=== PATIENT | female | born 1985 | race Caucasian/White ===

== ENCOUNTER → 2017-01-19 | Outpatient (REF) | payer SELFPAY | LOC: M LAB REF 12:03 | PROVIDERS: ATTEND Family Medicine Addiction Medicine | DX: F11.21 Opioid dependence, in remission (principal) ==

== ENCOUNTER → 2017-02-28 | Outpatient (REF) | payer MEDICAID | LOC: M LAB REF 17:14 | PROVIDERS: ATTEND Family Medicine Addiction Medicine | DX: F11.21 Opioid dependence, in remission (principal) ==

== ENCOUNTER → 2017-04-04 | Outpatient (REF) | payer OTHER ==
[~2017-04-04] MED LIST: BUTR10DI2 SL; XANA2TAB2 PO
== END ==
LOC: M LAB REF 16:30
PROVIDERS: ATTEND Family Medicine Addiction Medicine
DX: F11.21 Opioid dependence, in remission (principal)

== ENCOUNTER 2017-04-06 19:37 | Emergency (ER) | payer OTHER ==
[~2017-04-06] VITALS: Ht 152.4 cm; Wt 47.2 kg
[2017-04-06] MEDS ORDERED: BUTR10DI2 SL (19:57)
[2017-04-06] MEDS ORDERED: XANA2TAB2 PO (19:57)
--- NOTE | 2017-04-06 22:23 | ED PDOC ---
Post-Departure Follow-Up Patient states she believes she may be and possibly having a miscarriage. She states her LMP was 02/10/17 and she does not use any control. She has a history of multiple pregnancies ending in miscarriage and has had 1 ruptured ectopic. She states she started bleeding today. She denies any abdominal pain or cramping. The remainder of her H&P and ROS are as noted on her T-sheet. Initially, a urine hCG was completed, which was negative. When discussing with the patient, she stats that, with her ectopic, she had multiple negative urine hCG then a serum test was positive. The US then revealed a ruptured ectopic . Given her past history, a serum qualitative hGC was then ordered to confirm that she is not . JUANA MARTÍNEZ. [facility] Apr 06, 2017 22:23
[2017-04-06 23:22] LABS: CONTROL LINE HCG INT CTR LINE PRESENT
[2017-04-06 23:25] VITALS: BP 97/65
--- NOTE | 2017-04-06 23:28 | ED PDOC ---
Post-Departure Follow-Up Discussed negative serum hCG with the patient. Advised that this is her menses. Instructed to obtain her OB records so the providers at [facility] can see her history. Instructed on worrisome signs to return to the ED for. Questions answered. Patient states understanding to the instructions. JUANA MARTÍNEZ. [facility] Apr 06, 2017 23:28
== END 2017-04-06 23:31 | disposition home or self-care (01) ==
LOC: M ED 22:35
DX: N93.9 Abnormal uterine and vaginal bleeding, unspecified (principal); Z79.899 Other long term (current) drug therapy; Z88.0 Allergy status to penicillin; Z88.8 Allergy status to other drugs, medicaments and biological substances; F17.210 Nicotine dependence, cigarettes, uncomplicated

== ENCOUNTER → 2017-04-19 | Outpatient (REF) | payer OTHER ==
[2017-04-27 14:17] LABS: BENZODIAZEPINES, URINE SCREEN See Final Results ng/mL (Cutoff=200); METHADONE, URINE SCREEN Negative ng/mL (Cutoff=300)
== END ==
LOC: M LAB REF 16:35
PROVIDERS: ATTEND Family Medicine Addiction Medicine
DX: F11.21 Opioid dependence, in remission (principal); F41.8 Other specified anxiety disorders

== ENCOUNTER → 2017-05-03 | Outpatient (REF) | payer MEDICAID, OTHER ==
[~2017-05-03] MED LIST changes: +ATRO1OPD OD; +ATRO1OPD PO; +BUPR8SUB SL; +BUTR10DI SL; -BUTR10DI2 SL; +[UNRECOGNIZED DRUG - OTHER] OD
[2017-05-08 08:09] LABS: BENZODIAZEPINES, URINE SCREEN See Final Results ng/mL (Cutoff=200); METHADONE, URINE SCREEN Negative ng/mL (Cutoff=300)
== END ==
LOC: M LAB REF 16:34
PROVIDERS: ATTEND Family Medicine Addiction Medicine
DX: F11.21 Opioid dependence, in remission (principal)

== ENCOUNTER → 2017-05-25 | Outpatient (REF) | payer OTHER ==
[2017-06-01 00:06] LABS: BENZODIAZEPINES, URINE SCREEN See Final Results ng/mL (Cutoff=200); METHADONE, URINE SCREEN Negative ng/mL (Cutoff=300)
== END ==
LOC: M LAB REF 16:24
PROVIDERS: ATTEND Family Medicine Addiction Medicine
DX: F11.21 Opioid dependence, in remission (principal)

== ENCOUNTER 2017-06-05 12:06 | Day surgery (SDC) | payer OTHER ==
[~2017-06-05] VITALS: Ht 157.5 cm; Wt 49.9 kg
[~2017-06-05 12:06] MED LIST changes: +ACETAMINOPHEN 325 MG TAB PO PRN; -BUPR8SUB SL; +BUPRENORPHINE/NALOXONE 8-2MG SUBLINGUAL TABLET(SUBOXONE) SL SCH; +LIDOCAINE 2% W/EPIN INJ 20ML **PRES FREE As Ordered ONE; +LIDOCAINE 4% INJ 5 ML AMP OU ONE; +MAXITROL OPHTH OINT 3.5 GM As Ordered ONE; +MAXITROL OPHTH SUSP 5 ML As Ordered ONE; +POVIDONE-IODINE 5% OPHTH PREP SOL 30ML As Ordered ONE; +PROPARACAINE 0.5% OPHTH SOL 15ML OD PRN
[2017-06-05 12:43] LABS: CONTROL LINE UCG INT CTR LINE PRESENT
[2017-06-05] MEDS ORDERED: EMLA CREAM 5GM (LIDOCAINE/PRILOCAINE) As Ordered ONE (12:51)
[2017-06-05] MEDS ORDERED: LIDOCAINE 2% INJ 100 MG/5 ML SDV (FOR ANES.) As Ordered ONE (13:50)
[2017-06-05] MEDS ORDERED: PROPOFOL 200 MG/20 ML VIAL As Ordered ONE (13:50)
[2017-06-05] MEDS ORDERED: MIDAZOLAM INJ 2 MG/2 ML VIAL (J2250) As Ordered ONE (13:50)
[2017-06-05] MEDS ORDERED: fentaNYL 100 MCG/2 ML INJECTION (J3010) As Ordered ONE ×2 (13:51→16:27)
[2017-06-05] MEDS ORDERED: ONDANSETRON 4MG/2ML VIAL (J2405) As Ordered ONE (15:18)
[2017-06-05] MEDS: fentaNYL 100 MCG/2 ML INJECTION (J3010) IV PRN ×8 (16:29→17:22)
[2017-06-05] MEDS ORDERED: LR 1,000 ML IV SCH (16:45)
[2017-06-05] MEDS ORDERED: ONDANSETRON 4MG/2ML VIAL (J2405) IV PRN (16:45)
[2017-06-05] MEDS ORDERED: PERCOCET 5MG/325MG TAB PO PRN ×2 (16:45→20:45)
[2017-06-05] MEDS ORDERED: METOCLOPRAMIDE INJ 10MG/2ML VIAL (J2765) IV PRN (16:45)
[2017-06-05] MEDS ORDERED: TRIMETHOBENZAMIDE 300 MG CAP PO PRN (19:00)
[2017-06-05 19:30] VITALS: BP 101/60
[2017-06-05] MEDS ORDERED: ACETAMINOPHEN 500 MG TAB PO PRN (19:45)
[2017-06-05 20:30] VITALS: BP 107/65
[2017-06-05 20:31] LABS: MEAN CORPUSCULAR HEMOGLOBIN 29.8 pg (27.0-33.0); MEAN CORPUSCULAR HGB CONC 33.6 g/dl (32.0-36.5); MEAN CORPUSCULAR VOLUME 88.6 fl (80.0-96.0); WHITE BLOOD COUNT 5.4 K/mm3 (4.0-10.0)
[2017-06-05 20:47] LABS: ANION GAP 6 MEQ/L (8-16); BLOOD UREA NITROGEN 11 MG/DL (7-18); CALCIUM LEVEL 8.1 MG/DL (8.5-10.1); CARBON DIOXIDE LEVEL 26 MEQ/L (21-32); CHLORIDE LEVEL 108 MEQ/L (98-107); CREATININE FOR GFR 1.08 MG/DL (0.55-1.02); GLOMERULAR FILTRATION RATE > 60.0 (>60); GLUCOSE, FASTING 127 MG/DL (70-105); POTASSIUM SERUM 4.1 MEQ/L (3.5-5.1); SODIUM LEVEL 140 MEQ/L (136-145)
[2017-06-05] MEDS ORDERED: PREGABALIN 75 MG CAP(LYRICA) PO SCH (21:00)
[2017-06-05] MEDS ORDERED: ALPRAZolam 0.5 MG TAB PO SCH (21:00)
[2017-06-05] MEDS ORDERED: GABAPENTIN 300 MG CAP PO SCH ×2 (21:00)
[2017-06-05 21:12] LABS: FERRITIN 8 NG/ML (8-252); PERCENT SATURATION 16.5 % (13.2-45.0); TOTAL IRON BINDING CAPACITY 267 UG/DL (250-450)
[2017-06-05 21:21] LABS: VITAMIN B12 LEVEL 331 PG/ML (247-911)
[2017-06-05 21:22] LABS: FOLATE 6.7 NG/ML (>5.4)
[2017-06-05 21:30] VITALS: BP 104/64
[2017-06-05] MEDS ORDERED: MORPHINE 4 MG/ML 1ML SYRINGE IV PRN (21:45)
[2017-06-05] MEDS ORDERED: zolPIDEM TARTRATE 5 MG TAB PO ONE (21:45)
[2017-06-05 22:30] VITALS: BP 113/60
[2017-06-05] MEDS ORDERED: PERCOCET 5MG/325MG TAB PO ONE (22:45)
--- NOTE | 2017-06-05 23:20 | CR ---
DATE OF CONSULTATION: 06/05/2017 TIME PATIENT WAS SEEN: 2030 hours CONSULTING PHYSICIAN: Dr. Nelson, Ophthalmology. SIGN LANGUAGE TRANSLATOR: Dr. Rosenbaum, Hospitalist. REASON FOR CONSULT: Medical management. CHIEF COMPLAINT: Right eye pain. HISTORY OF THE PRESENT ILLNESS: A 31-year-old female with a past medical history of blind in the right eye, post-traumatic stress disorder (PTSD), anxiety, bipolar disorder, manic depression, hepatitis C, presented for enucleation of the right eye with Dr. Nelson. At the time of interview, the patient was agitated and anxious and does not want to answer further questions, would only allow for limited examination. Therefore, much of the medical history and information were obtained from nurses and the patient's chart. ALLERGIES: The patient is allergic to AMOXICILLIN and NALOXONE, which the patient stated makes her have trouble breathing and closes her airway. HOME MEDICATIONS: Including: - Xanax 2 mg one tablet by mouth three times a day - Butrans 8 mcg sublingual three times a day - atropine sulfate eye droplet 1% in the right eye twice a day PAST MEDICAL HISTORY: Blind in the right eye. PTSD. Anxiety. Bipolar disorder. Manic depression. Hepatitis C. PAST SURGICAL HISTORY: section times two. Left tubal ligation due to tubal . Cyst removal from ovary. SOCIAL HISTORY: The patient lives with her fiance and her son, smokes 3-5 cigarettes a day. Unclear if the patient is drinking; however, the patient stated that she has not been using narcotics since 2013, currently taking Suboxone. FAMILY HISTORY: The patient's paternal grandmother had breast cancer and paternal grandmother also had colorectal cancer. REVIEW OF SYSTEMS: Could not be fully obtained due to patient was not cooperative. PHYSICAL EXAMINATION: VITAL SIGNS: Temperature 98.6, pulse 71, respirations 18, blood pressure 101/60, oxygen was saturating at 99% on room air. GENERAL: The patient is a thin, young female who just had surgery for the right eye, laying flat in the bed. HEENT: The patient had an eye patch on for the right eye. Mucous membranes were moist. NECK: Supple. CARDIOVASCULAR: Regular rate and rhythm. S1, S2. No murmurs, rubs or gallops. LUNGS: Clear to auscultation bilaterally. No wheezing, rales, or rhonchi. ABDOMEN: Positive bowel sounds, soft, nontender, nondistended. EXTREMITIES: No edema, clubbing or cyanosis. The rest of the physical examination was not performed due to patient refused. LABORATORY DATA: WBC 5.4, hemoglobin 11.5, hematocrit 34.1 with platelet count of 104, MCV of 88.6. Sodium 140, potassium 4.1, chloride 108, bicarbonate 26, anion gap was 6, BUN 11 , creatinine 1.08, GFR greater than 60, fasting glucose 127, calcium 8.1, iron 44, TIBC 267, transferring saturation 16.5, ferritin was only 8, vitamin B12 was 331 , folate 6.7. Urine test was negative. ASSESSMENT AND PLAN: A 31-year-old female with a past medical history of blind in the right eye, post-traumatic stress disorder (PTSD), anxiety, bipolar disorder, manic depression, hepatitis C, history of drug abuse, currently on Suboxone, being consulted for medical management and pain management. Patient initially was given Tylenol, which she refused. Later on, Lyrica was refused as well. We also prescribed her Percocet one tablet by mouth every 6 hours, which she stated was not enough. Therefore, it was increased to Percocet two tablets by mouth every 4 hours. In addition, morphine 4 mg every 4 hours was given and also started her on gabapentin 100 mg by mouth three times a day. At this point, the patient's pain management was also consulted. The patient's Xanax was started as well. She was also given Ambien 5 mg for her to sleep. Otherwise, the patient was found to be anemic in the complete blood count (CBC); therefore, an iron panel was done and found she has iron deficiency anemia. Therefore, ferrous gluconate has been started. Once the patient goes home, she may need outpatient workup for reason she has iron deficiency anemia. Otherwise, pain management has been consulted, likely will see her in the morning. Otherwise, the patient has been discussed with attending doctor, Dr. Rosenbaum. My preceptor for this patient encounter was Dr. Rosenbaum. The preceptor was physically present in the building during the encounter and was fully available. As needed, all aspects of the patient interview, examination, medical decision making process, and medical care plan development were reviewed and approved by the preceptor. The preceptor is aware and concurs with the plan as stated in the body of this note and will attest to such by his/her co-signature. Attending Note: Patient discussed in detail with resident. I have independently evaluated patient and agree with plan as outlined above I have had subsequent discussions with our pharmacy. We will profile her home med of Saboxone and make adjustments this evening regarding pain meds. We will hold off on neurology and she may resume her home medications. Will recommend that the day team tomorrow reach out to pain management since I believe she may have difficulty controlling her pain with her known history of narcotic tolerance.] TAYE
[2017-06-06] MEDS ORDERED: BUPR8SUB SL (02:07)
[2017-06-06] MEDS: PERCOCET 5MG/325MG TAB PO PRN ×2 (02:49→07:08)
[2017-06-06 04:00] VITALS: BP 132/57
[2017-06-06 08:00] VITALS: BP 90/52
[2017-06-06] MEDS ORDERED: FERROUS GLUCONATE 324 MG TAB PO SCH (09:00)
[2017-06-06] MEDS ORDERED: BUPRENORPHINE/NALOXONE 8-2MG SUBLINGUAL TABLET(SUBOXONE) SL SCH (09:00)
[2017-06-06] MEDS ORDERED: ALPRAZolam 0.5 MG TAB PO PRN (09:15)
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
== END 2017-06-06 11:20 | disposition left against medical advice (07) ==
LOC: M SDC 12:06 → M PED 18:21 → M SDC 06-06 11:20
PROVIDERS: ATTEND Ophthalmology
DX: H54.41 Blindness, right eye, normal vision left eye (principal); F43.10 Post-traumatic stress disorder, unspecified; F41.9 Anxiety disorder, unspecified; F31.9 Bipolar disorder, unspecified; B19.20 Unspecified viral hepatitis C without hepatic coma; R29.898 Other symptoms and signs involving the musculoskeletal system; Z88.1 Allergy status to other antibiotic agents; Z88.5 Allergy status to narcotic agent; Z79.899 Other long term (current) drug therapy; Z98.51 Tubal ligation status; Z72.0 Tobacco use

== ENCOUNTER → 2017-06-12 | Outpatient (REF) | payer OTHER ==
[~2017-06-12] MED LIST changes: -ACETAMINOPHEN 325 MG TAB PO PRN; +BUPR8SUB SL; -BUPRENORPHINE/NALOXONE 8-2MG SUBLINGUAL TABLET(SUBOXONE) SL SCH; -LIDOCAINE 2% W/EPIN INJ 20ML **PRES FREE As Ordered ONE; -LIDOCAINE 4% INJ 5 ML AMP OU ONE; -MAXITROL OPHTH OINT 3.5 GM As Ordered ONE; -MAXITROL OPHTH SUSP 5 ML As Ordered ONE; -POVIDONE-IODINE 5% OPHTH PREP SOL 30ML As Ordered ONE; -PROPARACAINE 0.5% OPHTH SOL 15ML OD PRN
[2017-06-19 08:09] LABS: BENZODIAZEPINES, URINE SCREEN See Final Results ng/mL (Cutoff=200); METHADONE, URINE SCREEN Negative ng/mL (Cutoff=300); OXYCODONE URINE Negative (Cutoff=100); pH, URINE 5.8 (4.5-8.9)
== END ==
LOC: M LAB REF 13:44
PROVIDERS: ATTEND Family Medicine Addiction Medicine
DX: F11.21 Opioid dependence, in remission (principal)

== ENCOUNTER → 2017-07-05 | Outpatient (REF) | payer OTHER ==
[2017-07-12 00:06] LABS: BENZODIAZEPINES, URINE SCREEN See Final Results ng/mL (Cutoff=200); METHADONE, URINE SCREEN Negative ng/mL (Cutoff=300)
== END ==
LOC: M LAB REF 12:10
PROVIDERS: ATTEND Family Medicine Addiction Medicine
DX: F11.21 Opioid dependence, in remission (principal)

== ENCOUNTER → 2017-07-21 | Outpatient (REF) | payer OTHER ==
[2017-08-01 09:42] LABS: SUMMARY SEE SEPARATE REPORT
== END ==
LOC: M LAB REF 16:45
PROVIDERS: ATTEND Family Medicine Addiction Medicine
DX: F11.21 Opioid dependence, in remission (principal)

== ENCOUNTER → 2017-12-04 | Outpatient (REF) | payer OTHER, MEDICAID ==
[2017-12-04 13:37] LABS: CONTROL LINE UCG INT CTR LINE PRESENT; URINE PREG TEST NEGATIVE (NEGATIVE)
== END ==
LOC: M LAB REF 13:06
DX: Z31.49 Encounter for other procreative investigation and testing (principal)

== ENCOUNTER → 2018-01-10 | Outpatient (CLI) | payer MEDICAID | LOC: M OUTALCOH 08:29 | DX: Z03.89 Encounter for observation for other suspected diseases and conditions ruled out (principal) ==

== ENCOUNTER 2018-04-06 14:28 | Emergency (ER) | payer OTHER, MEDICAID ==
[2018-04-06 15:24] LABS: AMORPHOUS SEDIMENT RFX SMALL (NEGATIVE); CONTROL LINE UCG INT CTR LINE PRESENT; KETONE, URINE AUTO RFX NEGATIVE (NEGATIVE); LEUKOCYTE ESTERASE UR AUTO RFX NEGATIVE (NEGATIVE); MUCUS, URINE RFX SMALL (NEGATIVE); NITRITE, URINE AUTO RFX NEGATIVE (NEGATIVE); RBC, URINE AUTO RFX 27 /HPF (0-3); SPECIFIC GRAVITY UR AUTO RFX 1.014 (1.002-1.035); SQUAM EPITHELIAL CELL UR AURFX 10 /HPF (0-6); URINE PREG TEST NEGATIVE (NEGATIVE); WBC, URINE AUTO RFX 1 /HPF (0-3)
[2018-04-06 15:51] LABS: HEMATOCRIT 39.7 % (36.0-47.0); HEMOGLOBIN 12.7 g/dl (12.0-15.5); MEAN CORPUSCULAR HEMOGLOBIN 28.3 pg (27.0-33.0); MEAN CORPUSCULAR VOLUME 88.6 fl (80.0-96.0); PLATELET COUNT, AUTOMATED 169 10^3/uL (150-450); RED BLOOD COUNT 4.48 10^6/uL (4.00-5.40); RED CELL DISTRIBUTION WIDTH 13.8 % (11.5-14.5); WHITE BLOOD COUNT 5.5 10^3/uL (4.0-10.0)
[2018-04-06 16:09] LABS: CONTROL LINE HCG INT CTR LINE PRESENT; HCG, SERUM QUALITATIVE NEGATIVE (NEGATIVE)
== END 2018-04-06 16:29 | disposition home or self-care (01) ==
LOC: M ED 14:28
DX: N93.8 Other specified abnormal uterine and vaginal bleeding (principal); Z87.59 Personal history of other complications of pregnancy, childbirth and the puerperium; Z79.899 Other long term (current) drug therapy; Z88.0 Allergy status to penicillin; Z88.8 Allergy status to other drugs, medicaments and biological substances
CPT/HCPCS: 84703

== ENCOUNTER 2018-09-01 18:09 | Emergency (ER) | payer OTHER ==
[2018-09-01 19:29] LABS: KETONE, URINE AUTO RFX NEGATIVE (NEGATIVE); MUCUS, URINE RFX SMALL (NEGATIVE); NITRITE, URINE AUTO RFX NEGATIVE (NEGATIVE); RBC, URINE AUTO RFX 7 /HPF (0-3); SPECIFIC GRAVITY UR AUTO RFX 1.014 (1.002-1.035); SQUAM EPITHELIAL CELL UR AURFX 2 /HPF (0-6); YEAST LIKE CELL URINE AUTO RFX SMALL
[2018-09-01 19:33] LABS: LEUKOCYTE ESTERASE UR AUTO RFX 2+ (NEGATIVE); WBC, URINE AUTO RFX 12 /HPF (0-3)
[2018-09-01 19:36] LABS: MICROSCOPIC INDICATED? RFX NO (NO)
[2018-09-01 20:51] LABS: BASO % 0.4 % (0.0-1.0); EOS # 0.1 10^3/uL (0.0-0.50); EOS % 1.1 % (0.0-3.0); HEMATOCRIT 36.6 % (36.0-47.0); HEMOGLOBIN 12.1 g/dl (12.0-15.5); IMMATURE GRANULOCYTE % 0.2 % (0-3.0); LYMPH # 0.8 10^3/uL (1.5-4.5); LYMPH % 16.7 % (24.0-44.0); MEAN CORPUSCULAR HEMOGLOBIN 29.2 pg (27.0-33.0); MEAN CORPUSCULAR HGB CONC 33.1 g/dl (32.0-36.5); MEAN CORPUSCULAR VOLUME 88.2 fl (80.0-96.0); MONO # 0.4 10^3/uL (0.0-0.8); MONO % 8.8 % (0.0-5.0); NEUTROPHILS # 3.4 10^3/uL (1.8-7.7); NEUTROPHILS % 72.8 % (36.0-66.0); RED BLOOD COUNT 4.15 10^6/uL (4.00-5.40); RED CELL DISTRIBUTION WIDTH 13.9 % (11.5-14.5); WHITE BLOOD COUNT 4.7 10^3/uL (4.0-10.0)
[2018-09-01 21:00] LABS: POS COUNT POS FLAG
[2018-09-01 21:26] LABS: HCG, SERUM QUANTITATIVE 6124 MIU/ML
[2018-09-01] MEDS: metroNIDAZOLE (FLAGYL) 500 MG TAB PO (21:44)
== END 2018-09-01 21:48 | disposition home or self-care (01) ==
LOC: M ED 18:09
DX: Z32.01 Encounter for pregnancy test, result positive (principal); O99.89 Other specified diseases and conditions complicating pregnancy, childbirth and the puerperium; N83.12 Corpus luteum cyst of left ovary; A59.01 Trichomonal vulvovaginitis; Z88.0 Allergy status to penicillin; Z88.8 Allergy status to other drugs, medicaments and biological substances; Z3A.01 Less than 8 weeks gestation of pregnancy
CPT/HCPCS: 76801

== ENCOUNTER 2018-10-28 14:00 | Emergency (ER) | payer OTHER ==
[~2018-10-28] VITALS: Ht 152.4 cm; Wt 50.9 kg
[2018-10-28 14:00] VITALS: BP 114/62
[~2018-10-28 14:00] MED LIST changes: +BUSP1TAB PO; +FLAG500T PO; +LEXA1TAB PO; +PRAZ2CAP PO; +REFR1DRO8 OD; +TRAZ-160 PO
[2018-11-01] MEDS ORDERED: ONDA4TAB6 (11:04)
[2018-11-03] MEDS ORDERED: INDO50CA PO (09:17)
[2018-11-03] MEDS ORDERED: PERCOCET PO (09:19)
== END 2018-10-28 15:16 | disposition home or self-care (01) ==
LOC: M ED 14:00
DX: O26.892 Other specified pregnancy related conditions, second trimester (principal); N89.8 Other specified noninflammatory disorders of vagina; O99.342 Other mental disorders complicating pregnancy, second trimester; F43.10 Post-traumatic stress disorder, unspecified; F41.9 Anxiety disorder, unspecified; F40.10 Social phobia, unspecified; O99.322 Drug use complicating pregnancy, second trimester; F11.21 Opioid dependence, in remission; O99.332 Smoking (tobacco) complicating pregnancy, second trimester; F17.210 Nicotine dependence, cigarettes, uncomplicated; Z88.0 Allergy status to penicillin; Z88.5 Allergy status to narcotic agent; Z79.899 Other long term (current) drug therapy; Z3A.14 14 weeks gestation of pregnancy

== ENCOUNTER 2018-11-02 05:46 | Day surgery (SDC) | payer OTHER, SELFPAY ==
[~2018-11-02] VITALS: Ht 152.4 cm; Wt 50.8 kg
[~2018-11-02 05:46] MED LIST changes: +ONDA4TAB6
[2018-11-02] MEDS ORDERED: LR 1,000 ML IV ONE (06:00)
[2018-11-02 06:32] LABS: HEMATOCRIT 35.9 % (36.0-47.0); HEMOGLOBIN 12.1 g/dl (12.0-15.5); MEAN CORPUSCULAR HEMOGLOBIN 29.4 pg (27.0-33.0); MEAN CORPUSCULAR HGB CONC 33.7 g/dl (32.0-36.5); MEAN CORPUSCULAR VOLUME 87.3 fl (80.0-96.0); PLATELET COUNT, AUTOMATED 102 10^3/uL (150-450); RED BLOOD COUNT 4.11 10^6/uL (4.00-5.40); WHITE BLOOD COUNT 4.6 10^3/uL (4.0-10.0)
[2018-11-02] MEDS ORDERED: LIDOCAINE 2% INJ 100 MG/5 ML SDV (FOR ANES.) As Ordered ONE (07:05)
[2018-11-02] MEDS ORDERED: fentaNYL 100 MCG/2 ML INJECTION (J3010) As Ordered ONE ×2 (07:05→12:20)
[2018-11-02] MEDS ORDERED: PROPOFOL 200 MG/20 ML VIAL As Ordered ONE (07:05)
[2018-11-02] MEDS ORDERED: MIDAZOLAM INJ 2 MG/2 ML VIAL (J2250) As Ordered ONE (07:05)
[2018-11-02] MEDS ORDERED: LIDOCAINE 1% MDV 20ML VIAL As Ordered ONE (09:33)
[2018-11-02] MEDS ORDERED: SILVER NITRATE APPLICATOR As Ordered ONE (10:18)
[2018-11-02] MEDS ORDERED: ONDANSETRON 4MG/2ML VIAL (J2405) As Ordered ONE (11:35)
[2018-11-02] MEDS ORDERED: dexameTHASONE 4 MG/ML 1ML VIAL (J1100) As Ordered ONE (11:35)
[2018-11-02] MEDS ORDERED: ePHEDrine SULFATE 25 MG/5 ML(5MG/ML) SYRINGE As Ordered ONE (11:39)
[2018-11-02] MEDS: PERCOCET 5MG/325MG TAB PO PRN ×2 (12:20→12:50)
[2018-11-02] MEDS ORDERED: PERCOCET 5MG/325MG TAB As Ordered ONE (12:20)
[2018-11-02] MEDS: fentaNYL 100 MCG/2 ML INJECTION (J3010) IV PRN ×4 (12:20→12:35)
[2018-11-02] MEDS ORDERED: ONDANSETRON 4MG/2ML VIAL (J2405) IV PRN (12:30)
[2018-11-02] MEDS ORDERED: INDOMETHACIN 25 MG CAP PO PRN (12:30)
[2018-11-02] MEDS ORDERED: LR 1,000 ML IV SCH ×2 (12:30)
[2018-11-02] MEDS ORDERED: HYDROMORPHONE HCL 0.5 MG/ 0.5 ML SYRINGE (J1170 PER 1) IV PRN (12:30)
[2018-11-02 14:23] VITALS: BP 108/61
[2018-11-02] MEDS ORDERED: SODIUM CHLORIDE 0.9% INJ 10 ML SYR IV SCH (14:30)
--- NOTE | 2018-11-02 14:36 | RO ---
DATE OF PROCEDURE: 11/02/2018 PREOPERATIVE DIAGNOSIS: 1. History of cervical insufficiency with prior pregnancies. 2. 15+0 weeks gestation. POSTOPERATIVE DIAGNOSIS: 1. History of cervical insufficiency with prior pregnancies. 2. 15+0 weeks gestation. PROCEDURE PERFORMED: Parks cervical cerclage. SURGEON: Rick Schwab DO PROCEDURE TECH: None. ANESTHESIA: General via LMA. SPECIMENS TO PATHOLOGY: None. ESTIMATED BLOOD LOSS: Less than 5 mL. FLUIDS REPLACED: 900 mL lactated Ringer's. DRAINS: In-and-out catheter. URINE OUTPUT: 100 mL COMPLICATIONS: None. PREOPERATIVE ANTIBIOTICS: None indicated. INTRAOPERATIVE FINDINGS: Less than 1 cm of cervical length protruding into the vagina. Stage II to III cystocele. The cervix appeared highly attenuated and scarred from previous cerclages and cesareans. INDICATION: The patient is a 33-year-old with a history of cervical insufficiency and multiple births. She has agreed to proceed with a history-indicated cerclage. PROCEDURE: The patient was counseled consented on the risks, benefits, indications, and alternatives of the procedure. Informed consent was obtained. She was taken to the operating room with IV access. Of note, obtaining IV access was very difficult, requiring placement of a midline catheter by IR. heart rate was 150 bpm before induction of anesthesia. Upon entering the operating room, she was placed on the OR table in the dorsal supine position. General anesthesia was administered and the airway secured without any difficulty. She was placed in the high lithotomy position. She was prepared and draped in normal sterile fashion. A time-out was performed per protocol. The cervix was grasped at the anterior lip with a ring forceps and given the minimal cervical length, difficulty was encountered doing so. I switched to the single-tooth tenaculum at the anterior lip and downward traction was applied. At the anterior cervicovaginal junction, one Prolene stitch was placed. I proceeded with a pursestring stitch around the cervix in typical Parks cerclage fashion. The knot was tied at 12 o'clock. Several knots were placed for easy identification once removal is indicated. Minimal bleeding from the cervix and the cervical os was noted. After completion of the knot / cerclage, the cervix was noted to be completely closed. The only functional cervical length in the vagina was approximately 0.5 to 1 cm. A large cystocele was also present. No bleeding from the cervical os was noted. All instruments were removed from the vagina. A digital cervical exam was performed and the cervix was noted to be completely closed. No bleeding was noted. Sponge, lap, needle and sponge counts were again correct. The patient tolerated the entire procedure very well. She was transferred to the PACU in good stable condition. Of note, the heart rate was 150 bpm with a normal amniotic fluid volume per transabdominal ultrasound in the PACU. TAYE
--- NOTE | 2018-11-02 19:13 | REP ---
Procedure: Mid line insertion with Site-Rite The procedure was performed under the direct supervision of Dr. Naqvi. The risks and benefits of the procedure were explained to the patient and informed consent was obtained. The right basilic vein was localized using ultrasound guidance. The skin was prepped and draped in a sterile fashion. 1% lidocaine was used as a local anesthetic. Using ultrasound guidance the basilic vein was cannulated and a 0.018 guidewire was inserted. The needle was removed and a 4.5 [place] dilator and peel-away sheath was inserted over the guide wire. A 4.5 [place] single lumen catheter was cut to length of 13.5 cm. The dilator was removed and the catheter was inserted over the guide wire The peel-away sheath was removed and the catheter was flushed with heparinized saline as per Hospital protocol. The catheter was affixed to the skin and a sterile dressing was applied. The patient tolerated the procedure well and there were no immediate complications. Reviewed by TOMÁS Granados 11/02/2018 04:03 P Electronically Signed by Woody Naqvi MD 11/02/2018 07:04 P
[2018-11-03] MEDS ORDERED: UNRESOLVED CLARIFICATION ENTRY XX SCH (00:01)
[2018-11-03] MEDS ORDERED: INDO50CA PO (09:17)
[2018-11-03] MEDS ORDERED: PERCOCET PO (09:19)
== END 2018-11-02 14:40 | disposition home or self-care (01) ==
LOC: M SDC 05:46
PROVIDERS: ATTEND Obstetrics & Gynecology
DX: O34.31 Maternal care for cervical incompetence, first trimester (principal); Z3A.15 15 weeks gestation of pregnancy; Z88.0 Allergy status to penicillin; Z87.891 Personal history of nicotine dependence
CPT/HCPCS: 36415; 59320; 76937; 85027; 86850; 86900; 86901; J1100; J1170; J2405; J3010

== ENCOUNTER → 2018-11-29 | Outpatient (CLI) | payer OTHER ==
[~2018-11-29] MED LIST changes: +INDO50CA PO; +PERCOCET PO
--- NOTE | 2018-11-29 13:40 | REP ---
OB ULTRASOUND: Real-time sonographic evaluation of the gravid uterus performed. There is a single living intrauterine gestation with an estimated gestational age 19 weeks 2 days, EDC 04/23/2019. Today's measurements indicate appropriate growth. Biometry and Growth: BPD 41 mm = 18 weeks 3 days, 27th percentile HC 156 mm = 18 weeks 4 days, 27th percentile AC 132 mm = 18 weeks 5 days, 37th percentile FL 28 mm = 18 weeks 4 days, 32nd percentile HC/AC ratio 1.18 within normal range. Estimated weight 249 grams, 23rd percentile. SEEN/GROSSLY UNREMARKABLE Lateral ventricles Yes Posterior fossa Yes Upper lip Yes Four-chamber heart No LVOT Yes RVOT Yes Stomach Yes Cord insertion Yes Three vessel cord Yes Kidneys No Bladder Yes Spine No Cervical length: Closed and measures 2.9 cm in length. heart rate: 126 beats per minute. position: Vertex Placenta: Placenta is posterior and grade 1 with no previa or abruption. Amniotic fluid: Within normal limits. Electronically Signed by Aki Villalobos MD 11/29/2018 03:50 P
== END ==
LOC: M RAD 09:38
PROVIDERS: ATTEND Obstetrics & Gynecology
DX: Z34.82 Encounter for supervision of other normal pregnancy, second trimester (principal)

== ENCOUNTER → 2018-12-31 | Outpatient (REF) | payer OTHER ==
[2018-12-31 14:19] LABS: CHLAMYDIA DNA AMPLIFICATION NEGATIVE (NEGATIVE); GC DNA AMPLIFICATION NEGATIVE (NEGATIVE)
== END ==
LOC: M LAB REF 11:55
PROVIDERS: ATTEND Obstetrics & Gynecology
DX: O09.212 Supervision of pregnancy with history of pre-term labor, second trimester (principal); Z3A.00 Weeks of gestation of pregnancy not specified

== ENCOUNTER → 2019-01-07 | Outpatient (CLI) | payer OTHER ==
--- NOTE | 2019-01-08 03:15 | REP ---
Clinical: Anatomical evaluation. Comparison: 11/29/2018 . Findings: Examination demonstrates a single live intrauterine in cephalic presentation. motion is identified by technologist. Placenta is noted posterior and grade grade 1 without evidence for placenta previa or abruption. Amniotic fluid volume is normal. Cervix measures 2.2 cm in length and appears closed. No evidence for nuchal cord. Gestational age by LMP 24 weeks 6 days with JARON 04/23/2019 . Gestational age by current measurements 23 weeks 5 days with JARON 05/01/2019 . FHR equals 142 beats per minute. Estimated weight 635 grams ( 16th percentile). Anatomical assessment demonstrates normal structures including cranium, choroid plexus, cavum, cerebellum/posterior fossa, facial features, lungs, four-chamber heart/ventricular outflow tracts, diaphragm, stomach, cord insertion/three-vessel cord, kidneys/bladder, spine, and extremities. Impression: 1. Mildly shortened closed cervix at 2.2 cm. 2. Appropriate interval growth. 3. Anatomical assessment is complete and normal. Electronically Signed by Hardeep Saba MD 01/08/2019 03:07 A
== END ==
LOC: M RAD 11:51
PROVIDERS: ATTEND Obstetrics & Gynecology
DX: O99.212 Obesity complicating pregnancy, second trimester (principal); Z3A.24 24 weeks gestation of pregnancy; E66.9 Obesity, unspecified

== ENCOUNTER 2019-09-14 16:54 | Emergency (ER) | payer OTHER ==
[~2019-09-14] VITALS: Ht 154.9 cm; Wt 47.5 kg
[~2019-09-14 16:54] MED LIST changes: -INDO50CA PO; +INDO50CA91 PO; -TRAZ-160 PO; +TRAZ-252 PO
[2019-09-14] MEDS ORDERED: SUBUTEX (17:04)
[2019-09-14] MEDS ORDERED: CLINDAMYCIN 600 MG in IV 1 EA IV ONE (19:00)
[2019-09-14] MEDS ORDERED: NS 1,000 ML IV SCH (19:00)
[2019-09-14] MEDS ORDERED: KETOROLAC 30 MG/ML VIAL (J1885) IV ONE (19:15)
[2019-09-14 19:23] LABS: BASO % 0.5 % (0.0-1.0); EOS # 0.1 10^3/uL (0.0-0.5); EOS % 1.1 % (0.0-3.0); HEMATOCRIT 43.1 % (36.0-47.0); HEMOGLOBIN 13.3 g/dl (12.0-15.5); MEAN CORPUSCULAR HEMOGLOBIN 26.6 pg (27.0-33.0); MEAN CORPUSCULAR HGB CONC 30.9 g/dl (32.0-36.5); MEAN CORPUSCULAR VOLUME 86.2 fl (80.0-96.0); MONO # 0.3 10^3/uL (0.0-0.8); NEUTROPHILS # 4.1 10^3/uL (1.5-8.5); PLATELET COUNT, AUTOMATED 145 10^3/uL (150-450); WHITE BLOOD COUNT 5.5 10^3/uL (4.0-10.0)
[2019-09-14 19:32] LABS: BLOOD UREA NITROGEN 12 MG/DL (7-18); C REACTIVE PROTEIN QUANTITATIV 4.67 MG/DL (0.00-0.30); CALCIUM LEVEL 9.3 MG/DL (8.5-10.1); CARBON DIOXIDE LEVEL 27 MEQ/L (21-32); CHLORIDE LEVEL 107 MEQ/L (98-107); CREATININE FOR GFR 1.23 MG/DL (0.55-1.30); GLOMERULAR FILTRATION RATE 54.2 (>60); GLUCOSE, FASTING 87 MG/DL (70-100); POTASSIUM SERUM 4.2 MEQ/L (3.5-5.1); SODIUM LEVEL 140 MEQ/L (136-145)
[2019-09-14 19:43] LABS: ERYTHROCYTE SEDIMENTATION RATE 18 mm/hr (0-20)
[2019-09-14] MEDS ORDERED: ISOVUE-370 76% 100ML VIAL (Q9967) As Ordered ONE (19:43)
[2019-09-14 19:54] LABS: HCG, SERUM QUALITATIVE NEGATIVE (NEGATIVE)
--- NOTE | 2019-09-14 20:43 | REPVR ---
PROCEDURE INFORMATION: Exam: CT Neck With Contrast Exam date and time: 09/14/2019 7:53 PM Clinical history: 33 years old, female; Abscess, cutaneous; Additional info: Right facial abscess TECHNIQUE: Imaging protocol: Computed tomography images of the neck with intravenous contrast. Radiation optimization: All CT scans at this facility use at least one of these dose optimization techniques: automated exposure control; mA and/or kV adjustment per patient size (includes targeted exams where dose is matched to clinical indication); or iterative reconstruction. Contrast material: ISOVUE 370; Contrast volume: 75 ml; Contrast route: IV; COMPARISON: No relevant prior studies available. FINDINGS: Orbits: There is a right ocular prosthesis in place. The left orbit appears normal. Nasopharynx: Unremarkable. Oropharynx: Unremarkable. No significant tonsillar enlargement. Hypopharynx: Unremarkable Larynx: Unremarkable. Normal epiglottis. Retropharyngeal space: Unremarkable. Submandibular/Parotid glands: Normal. Glands are normal in size. Thyroid: Normal. No enlarged or calcified nodules. Lymph nodes: Unremarkable. No lymphadenopathy. Trachea: Visualized trachea is unremarkable. Lungs: Unremarkable as visualized. Bones/joints: Unremarkable. No acute fracture. Soft tissues: Marked soft tissue swelling noted within the subcutaneous fat overlying the right masseter muscle extending inferiorly over the maxilla and mandible down to the level of the chin. Left nasal writing. Sinuses: Minimal mucosal thickening in the floor the right maxillary sinus. Dental: Multiple dental caries. Multiple missing teeth. Periapical bone resorption noted at the base of the a molar in the lower right posterior mandibular alveolar ridge. Dental caries noted in the left lower posterior molar. Multiple dental caries noted in the teeth in the maxillary alveolar ridge. IMPRESSION: 1. Phlegmonous inflammatory changes on the right side of the face 2. Focal periapical bone resorption surrounding several teeth but particularly a lower right molar suggesting dental abscess 3.Multiple dental caries. Electronically signed by: Nancy Quezada On 09/14/2019 20:43:17 PM
[2019-09-14] MEDS ORDERED: CLINDAMYCIN 150 MG CAP PO ONE (21:15)
[2019-09-14] MEDS ORDERED: CLEO300C2 PO (21:24)
[2019-09-14 21:44] VITALS: BP 119/65
== END 2019-09-14 21:51 | disposition home or self-care (01) ==
LOC: M ED 16:54
DX: K02.9 Dental caries, unspecified (principal); K04.7 Periapical abscess without sinus; F17.200 Nicotine dependence, unspecified, uncomplicated; Z79.899 Other long term (current) drug therapy; Z88.0 Allergy status to penicillin; Z88.8 Allergy status to other drugs, medicaments and biological substances
CPT/HCPCS: 70491; 80048; 84703; 85025; 85652; 86140; 87040; 96374; 96375; 99284; J1885; Q9967

== ENCOUNTER → 2021-11-01 | Outpatient (CLI) | payer OTHER ==
[~2021-11-01] MED LIST changes: +CLEO300C2 PO; +SUBUTEX
--- NOTE | 2021-11-01 18:41 | REP ---
INDICATION: SPOTTING COMPARISON: None. TECHNIQUE: Transabdominal obstetrical ultrasound with color Doppler evaluation. FINDINGS: Examination demonstrates a single live intrauterine in breech presentation. motion is identified by technologist. Placenta is noted anterior/fundal and grade 0 without evidence for placenta previa or abruption. Amniotic fluid volume is normal. Cervix measures approximately 3 cm length by transabdominal imaging and appears closed. Selected gestational age: 19 weeks 4 days with JARON 03/24/2022. FHR equals 144 beats per minute. Estimated weight 306 grams (48thpercentile). Anatomical assessment demonstrates normal structures including cranium, choroid plexus, cavum, cerebellum, lungs, four-chamber heart, diaphragm, stomach, cord insertion/three-vessel cord, bladder, and extremities. Limited evaluation of the posterior fossa/cisterna magna, nose/lips, cardiac ventricular outflow tracts, kidneys and spine. IMPRESSION: Single live intrauterine in breech presentation demonstrating appropriate estimated weight. Anatomical limitations as noted above may warrant follow-up examination. Cervical length measured transabdominally at 3 cm length.. <Electronically signed by Hardeep Saba > 11/01/21 [id number]
== END ==
LOC: M RAD 16:09
PROVIDERS: ATTEND Advanced Practice Midwife
DX: O26.852 Spotting complicating pregnancy, second trimester (principal); O32.1XX0 Maternal care for breech presentation, not applicable or unspecified; Z3A.19 19 weeks gestation of pregnancy

== ENCOUNTER 2021-11-21 12:11 | Outpatient (CLI) | payer OTHER ==
[~2021-11-21] VITALS: Ht 157.5 cm; Wt 67.0 kg
[2021-11-21 12:42] VITALS: BP 101/63
[2021-11-21] MEDS ORDERED: PRENTAB9 PO (13:36)
[2021-11-21] MEDS ORDERED: IBUP-1114 PO (13:36)
[2021-11-21] MEDS ORDERED: XANA1TAB2 PO (13:36)
[2021-11-21] MEDS ORDERED: HOME MED LIST COMPLETE! XX SCH (13:40)
[2021-11-21 16:05] VITALS: BP 97/60
== END 2021-11-21 16:05 | disposition home or self-care (01) ==
LOC: M LDO 12:11
PROVIDERS: ATTEND Obstetrics & Gynecology
DX: O26.892 Other specified pregnancy related conditions, second trimester (principal); O09.32 Supervision of pregnancy with insufficient antenatal care, second trimester; R10.2 Pelvic and perineal pain; R25.2 Cramp and spasm; Z3A.24 24 weeks gestation of pregnancy

== ENCOUNTER → 2022-01-06 | Outpatient (CLI) | payer OTHER ==
[~2022-01-06] MED LIST changes: +IBUP-1114 PO; +PRENTAB9 PO; +XANA1TAB2 PO
== END ==
LOC: M WHC 09:50
PROVIDERS: ATTEND Specialist
DX: O36.63X0 Maternal care for excessive fetal growth, third trimester, not applicable or unspecified (principal); Z36.2 Encounter for other antenatal screening follow-up; Z3A.30 30 weeks gestation of pregnancy

== ENCOUNTER → 2022-01-12 | Outpatient (CLI) | payer OTHER | LOC: M WHC 14:00 | PROVIDERS: ATTEND Advanced Practice Midwife | DX: O36.5930 Maternal care for other known or suspected poor fetal growth, third trimester, not applicable or unspecified (principal); Z3A.31 31 weeks gestation of pregnancy ==

== ENCOUNTER → 2022-01-18 | Outpatient (CLI) | payer OTHER | LOC: M WHC 11:02 | PROVIDERS: ATTEND Advanced Practice Midwife | DX: O36.5930 Maternal care for other known or suspected poor fetal growth, third trimester, not applicable or unspecified (principal); O32.1XX0 Maternal care for breech presentation, not applicable or unspecified; Z3A.32 32 weeks gestation of pregnancy ==

== ENCOUNTER → 2022-01-25 | Outpatient (CLI) | payer OTHER | LOC: M WHC 11:06 | PROVIDERS: ATTEND Advanced Practice Midwife | DX: O36.5930 Maternal care for other known or suspected poor fetal growth, third trimester, not applicable or unspecified (principal); O32.1XX0 Maternal care for breech presentation, not applicable or unspecified; Z3A.33 33 weeks gestation of pregnancy; O41.03X0 Oligohydramnios, third trimester, not applicable or unspecified ==

== ENCOUNTER 2023-01-05 10:51 | Inpatient (IN) | payer OTHER ==
[~2023-01-05] VITALS: Ht 152.4 cm; Wt 56.7 kg
[~2023-01-05 10:51] MED LIST changes: +COLA100C5 PO; +IBUP80TA PO; +NICO1DIS12 TD
[2023-01-05 11:53] LABS: BASO % 0.4 % (0.0-1.0); HEMATOCRIT 33.3 % (36.0-47.0); HEMOGLOBIN 10.6 g/dl (12.0-15.5); LYMPH # 0.2 10^3/uL (1.5-5.0); LYMPH % 2.2 % (24.0-44.0); MEAN CORPUSCULAR HEMOGLOBIN 27.9 pg (27.0-33.0); MEAN CORPUSCULAR HGB CONC 31.8 g/dl (32.0-36.5); MEAN CORPUSCULAR VOLUME 87.6 fl (80.0-96.0); MONO # 0.2 10^3/uL (0.0-0.8); NEUTROPHILS # 10.4 10^3/uL (1.5-8.5); NEUTROPHILS % 93.7 % (36.0-66.0); PLATELET COUNT, AUTOMATED 159 10^3/uL (150-450); WHITE BLOOD COUNT 11.1 10^3/uL (4.0-10.0)
[2023-01-05 12:03] LABS: ERYTHROCYTE SEDIMENTATION RATE 104 mm/hr (0-20)
[2023-01-05 12:08] LABS: INR 1.42; PROTHROMBIN TIME 17.6 SECONDS (12.5-14.5)
[2023-01-05 12:09] LABS: PARTIAL THROMBOPLASTIN TIME 42.3 SECONDS (24.8-34.2)
[2023-01-05 12:24] LABS: CK-MB VALUE MASS 9.4 NG/ML (<3.6)
[2023-01-05 12:26] LABS: BLOOD UREA NITROGEN 20 MG/DL (9-23); CALCIUM LEVEL 8.7 MG/DL (8.5-10.1); CARBON DIOXIDE LEVEL 27 MMOL/L (20-31); CHLORIDE LEVEL 99 MMOL/L (98-107); CPK CREATINE PHOSPHOKINASE 585 U/L (34-145); CREATININE FOR GFR 1.08 MG/DL (0.55-1.30); GLOMERULAR FILTRATION RATE > 60.0 (>60); GLUCOSE, FASTING 112 MG/DL (60-100); POTASSIUM SERUM 3.5 MMOL/L (3.5-5.1); SODIUM LEVEL 135 MMOL/L (136-145)
[2023-01-05 12:27] LABS: HCG, SERUM QUALITATIVE NEGATIVE (NEGATIVE)
[2023-01-05 12:29] LABS: RSV AMPLIFICATION NEGATIVE (NEGATIVE)
[2023-01-05] MEDS ORDERED: VANCOMYCIN HCL 1,250 MG in NS 250 ML IV ONE (12:50)
[2023-01-05] MEDS ORDERED: VANCOMYCIN HCL 500 MG in D5W MINI-BAG PLUS 100 ML IV ONE (14:00)
[2023-01-05] MEDS ORDERED: VANCOMYCIN HCL 750 MG, VIAL MATE ADAPTER 1 EACH in D5W 250 ML IV ONE (15:00)
[2023-01-05] MEDS ORDERED: ONDANSETRON 4MG 2ML VIAL IV ONE (15:50)
[2023-01-05] MEDS ORDERED: ONDANSETRON 4MG 2ML VIAL As Ordered ONE (16:13)
[2023-01-05] MEDS ORDERED: BUPRENORPHINE HCL 8MG SUBINGUAL TABLET SL STA (17:11)
[2023-01-05] MEDS ORDERED: ALPRAZolam 0.5 MG TAB PO STA (17:11)
[2023-01-05] MEDS: PRAZOSIN 1 MG CAP PO SCH (21:00)
[2023-01-05] MEDS: SENNA 8.6 MG TAB (SENOKOT) PO SCH (21:00)
[2023-01-05 22:04] LABS: AMPHETAMINES LEVEL URINE NEGATIVE (NEGATIVE); METHADONE URINE NEGATIVE (NEGATIVE); OPIATES URINE NEGATIVE (NEGATIVE)
[2023-01-05 22:05] LABS: BARBITURATES URINE NEGATIVE (NEGATIVE); CANNABINOIDS URINE NEGATIVE (NEGATIVE); COCAINE METABOLITE URINE NEGATIVE (NEGATIVE); PHENCYCLIDINE URINE NEGATIVE (NEGATIVE)
[2023-01-05 22:09] LABS: BENZODIAZEPINES URINE POSITIVE (NEGATIVE)
[2023-01-05] MEDS ORDERED: SODIUM CHLORIDE 0.9% 1000ML IV STA (22:56)
[2023-01-05] MEDS ORDERED: LEXA1TAB2 PO (23:03)
[2023-01-05] MEDS ORDERED: XANA1TAB2 PO (23:03)
[2023-01-05] MEDS ORDERED: PRAZ5CAP PO (23:03)
[2023-01-05] MEDS ORDERED: HOME MED LIST COMPLETE! XX SCH (23:05)
[2023-01-06 00:58] VITALS: BP 125/75
[2023-01-06] MEDS ORDERED: ACETAMINOPHEN TAB 650MG DOSE (2X325MG) PO ONE (01:00)
[2023-01-06] MEDS: BUPRENORPHINE HCL 8MG SUBINGUAL TABLET SL SCH ×5 (01:24→20:22)
[2023-01-06] MEDS ORDERED: VANCOMYCIN HCL 1,000 MG, VIAL MATE ADAPTER 1 EACH in NS 250 ML IV SCH (02:00)
[2023-01-06] MEDS: ONDANSETRON 4MG 2ML VIAL IV PRN ×3 (02:05→13:47)
[2023-01-06 06:38] VITALS: BP 106/84
[2023-01-06] MEDS: ENOXAPARIN 40MG/0.4ML SYRINGE (J1650 PER 10MG) SC SCH (09:00)
[2023-01-06] MEDS: SENNA 8.6 MG TAB (SENOKOT) PO SCH ×2 (09:00→20:23)
[2023-01-06] MEDS: ESCITALOPRAM OXALATE 10 MG TAB (LEXAPRO) PO SCH (09:44)
[2023-01-06] MEDS: ALPRAZolam 0.5 MG TAB PO SCH ×4 (09:44→20:22)
[2023-01-06] MEDS ORDERED: ACETAMINOPHEN 500 MG TAB PO ONE (12:45)
[2023-01-06 14:00] VITALS: BP 124/78
[2023-01-06] MEDS ORDERED: PROMETHAZINE 25 MG TAB PO ONE (15:00)
[2023-01-06] MEDS: VANCOMYCIN HCL 750 MG, VIAL MATE ADAPTER 1 EACH in D5W 250 ML IV SCH (16:13)
[2023-01-06] MEDS: NS 1,000 ML IV SCH (18:19)
[2023-01-06] MEDS: PRAZOSIN 1 MG CAP PO SCH (20:23)
[2023-01-06 20:38] VITALS: BP 112/64
[2023-01-07] MEDS: NS 1,000 ML IV SCH ×2 (02:50→10:22)
[2023-01-07] MEDS: VANCOMYCIN HCL 750 MG, VIAL MATE ADAPTER 1 EACH in D5W 250 ML IV SCH ×2 (02:50→14:56)
[2023-01-07 05:52] VITALS: BP 100/60
[2023-01-07] MEDS: PROMETHAZINE 25 MG TAB PO PRN ×2 (06:02→15:01)
[2023-01-07] MEDS ORDERED: MUPIROCIN 2% OINT 22 GM TUBE TOP SCH (09:00)
[2023-01-07] MEDS: ENOXAPARIN 40MG/0.4ML SYRINGE (J1650 PER 10MG) SC SCH (09:00)
[2023-01-07] MEDS: levETIRAcetam 250MG TABLET (KEPPRA) PO SCH ×2 (09:00→13:00)
[2023-01-07] MEDS: SENNA 8.6 MG TAB (SENOKOT) PO SCH (09:00)
[2023-01-07] MEDS: BUPRENORPHINE HCL 8MG SUBINGUAL TABLET SL SCH ×2 (10:18→15:01)
[2023-01-07] MEDS: ALPRAZolam 0.5 MG TAB PO SCH ×2 (10:20→13:37)
[2023-01-07] MEDS: ESCITALOPRAM OXALATE 10 MG TAB (LEXAPRO) PO SCH (10:21)
[2023-01-07 10:33] LABS: HEMATOCRIT 30.3 % (36.0-47.0); HEMOGLOBIN 8.9 g/dl (12.0-15.5); MEAN CORPUSCULAR HEMOGLOBIN 27.6 pg (27.0-33.0); MEAN CORPUSCULAR HGB CONC 29.4 g/dl (32.0-36.5); MEAN CORPUSCULAR VOLUME 94.1 fl (80.0-96.0); RED BLOOD COUNT 3.22 10^6/uL (4.00-5.40); WHITE BLOOD COUNT 4.6 10^3/uL (4.0-10.0)
[2023-01-07 11:02] LABS: ALBUMIN 2.2 G/DL (3.2-5.2); ALKALINE PHOSPHATASE 145 U/L (46-116); ALT/SGPT 34 U/L (7.0-40); AST/SGOT 29 U/L (<34); BILIRUBIN,TOTAL 0.2 MG/DL (0.3-1.2); BLOOD UREA NITROGEN 9 MG/DL (9-23); CALCIUM LEVEL 7.9 MG/DL (8.5-10.1); CARBON DIOXIDE LEVEL 24 MMOL/L (20-31); CHLORIDE LEVEL 111 MMOL/L (98-107); CPK CREATINE PHOSPHOKINASE 83 U/L (34-145); GLOMERULAR FILTRATION RATE > 60.0 (>60); GLUCOSE, FASTING 88 MG/DL (60-100); MAGNESIUM LEVEL 1.7 MG/DL (1.8-2.4); POTASSIUM SERUM 3.8 MMOL/L (3.5-5.1); SODIUM LEVEL 142 MMOL/L (136-145); TOTAL PROTEIN 5.9 G/DL (5.7-8.2)
[2023-01-07] MEDS ORDERED: MAGNESIUM OXIDE 400MG TAB (MAG-OX) PO ONE (11:45)
[2023-01-07] MEDS ORDERED: MUPI2OI TOP (12:06)
[2023-01-07] MEDS ORDERED: KEPP250T5 PO (12:06)
[2023-01-07] MEDS ORDERED: HIBI4LIQ EXT (12:06)
[2023-01-07] MEDS ORDERED: ACETAMINOPHEN 500 MG TAB PO ONE (12:25)
[2023-01-07 14:00] VITALS: BP 90/50
== END 2023-01-07 16:23 | disposition home or self-care (01) | DRG 720 ==
LOC: M ED 10:51 → EDBD 10:51 → EEVIPCON 23:27 → M ED INP 23:27 → M MSPAV 01-06 00:53
PROVIDERS: ADMIT Family Medicine; ATTEND Internal Medicine
DX: A41.51 Sepsis due to Escherichia coli [E. coli] (principal); M62.82 Rhabdomyolysis; R56.9 Unspecified convulsions; L03.115 Cellulitis of right lower limb; E11.9 Type 2 diabetes mellitus without complications; D64.9 Anemia, unspecified; F43.10 Post-traumatic stress disorder, unspecified; F32.A Depression, unspecified; Z88.8 Allergy status to other drugs, medicaments and biological substances; R19.7 Diarrhea, unspecified; Z79.899 Other long term (current) drug therapy; F41.0 Panic disorder [episodic paroxysmal anxiety]; Z91.199 Patient's noncompliance with other medical treatment and regimen due to unspecified reason; Z88.1 Allergy status to other antibiotic agents; Z88.2 Allergy status to sulfonamides; Z20.822 Contact with and (suspected) exposure to COVID-19

== ENCOUNTER 2023-01-07 17:00 | Outpatient (CLI) | payer OTHER ==
[~2023-01-07] VITALS: Ht 152.4 cm; Wt 56.7 kg
[2023-01-07 16:39] VITALS: BP 100/60
[~2023-01-07 17:00] MED LIST changes: +DALBAVANCIN 1,500 MG in D5W 250 ML IV ONE; +HIBI4LIQ EXT; +KEPP250T5 PO; +LEXA1TAB2 PO; +MUPI2OI TOP; +PRAZ5CAP PO
[2023-01-07 17:40] VITALS: BP 98/58
== END 2023-01-07 17:40 | disposition home or self-care (01) ==
LOC: M OPCLI4PV 17:00
PROVIDERS: ATTEND Internal Medicine
DX: L03.115 Cellulitis of right lower limb (principal); Z88.0 Allergy status to penicillin; Z88.1 Allergy status to other antibiotic agents
CPT/HCPCS: 96365; J0875

== ENCOUNTER 2023-02-16 16:27 | Emergency (ER) | payer OTHER ==
[~2023-02-16] VITALS: Ht 152.4 cm; Wt 55.4 kg
[~2023-02-16 16:27] MED LIST changes: -ATRO1OPD OD; -ATRO1OPD PO; +ATRO2DRO4 OD; +ATRO2DRO4 PO; -DALBAVANCIN 1,500 MG in D5W 250 ML IV ONE
[2023-02-16 18:33] LABS: BASO % 0.5 % (0.0-1.0); EOS # 0.1 10^3/uL (0.0-0.5); EOS % 1.4 % (0.0-3.0); HEMATOCRIT 35.9 % (36.0-47.0); HEMOGLOBIN 10.8 g/dl (12.0-15.5); LYMPH # 1.2 10^3/uL (1.5-5.0); LYMPH % 27.3 % (24.0-44.0); MEAN CORPUSCULAR HEMOGLOBIN 26.8 pg (27.0-33.0); MEAN CORPUSCULAR HGB CONC 30.1 g/dl (32.0-36.5); MEAN CORPUSCULAR VOLUME 89.1 fl (80.0-96.0); MONO # 0.3 10^3/uL (0.0-0.8); MONO % 6.4 % (2.0-8.0); NEUTROPHILS # 2.7 10^3/uL (1.5-8.5); NEUTROPHILS % 64.2 % (36.0-66.0); PLATELET COUNT, AUTOMATED 166 10^3/uL (150-450); RED BLOOD COUNT 4.03 10^6/uL (4.00-5.40); WHITE BLOOD COUNT 4.2 10^3/uL (4.0-10.0)
[2023-02-16 18:56] LABS: AMPHETAMINES LEVEL URINE NEGATIVE (NEGATIVE); BARBITURATES URINE NEGATIVE (NEGATIVE); COCAINE METABOLITE URINE NEGATIVE (NEGATIVE); METHADONE URINE NEGATIVE (NEGATIVE)
[2023-02-16 18:57] LABS: CANNABINOIDS URINE NEGATIVE (NEGATIVE); ETHYL ALCOHOL (ETHANOL) 0.004 % (0.000-0.010); OPIATES URINE NEGATIVE (NEGATIVE); PHENCYCLIDINE URINE NEGATIVE (NEGATIVE)
[2023-02-16 18:59] LABS: ACETAMINOPHEN LEVEL < 2.0 UG/ML (10.0-20.0); ALKALINE PHOSPHATASE 159 U/L (46-116); ALT/SGPT 24 U/L (7.0-40); AST/SGOT 42 U/L (<34); BILIRUBIN,DIRECT 0.2 MG/DL (<0.4); BILIRUBIN,TOTAL 0.5 MG/DL (0.3-1.2); BLOOD UREA NITROGEN 8 MG/DL (9-23); CARBON DIOXIDE LEVEL 28 MMOL/L (20-31); CHLORIDE LEVEL 103 MMOL/L (98-107); CREATININE FOR GFR 0.95 MG/DL (0.55-1.30); GLOMERULAR FILTRATION RATE > 60.0 (>60); GLUCOSE, FASTING 86 MG/DL (60-100); POTASSIUM SERUM 3.8 MMOL/L (3.5-5.1); SALICYLATE LEVEL < 3.0 MG/DL (<30); SODIUM LEVEL 139 MMOL/L (136-145); TOTAL PROTEIN 8.6 G/DL (5.7-8.2)
[2023-02-16 19:00] LABS: BENZODIAZEPINES URINE POSITIVE (NEGATIVE)
[2023-02-16 19:01] LABS: HCG, SERUM QUALITATIVE NEGATIVE (NEGATIVE)
[2023-02-16 19:02] LABS: THYROID STIMULATING HORMONE 1.127 uIU/ML (0.55-4.78)
[2023-02-16] MEDS ORDERED: DOXY-443 PO (20:09)
[2023-02-16] MEDS ORDERED: MUPI30CR TOP (20:09)
[2023-02-16 20:40] VITALS: BP 117/64
== END 2023-02-16 20:42 | disposition home or self-care (01) ==
LOC: M ED 16:27
DX: F42.4 Excoriation (skin-picking) disorder (principal); F41.9 Anxiety disorder, unspecified; L03.90 Cellulitis, unspecified; F40.00 Agoraphobia, unspecified; F11.20 Opioid dependence, uncomplicated; Z79.899 Other long term (current) drug therapy; Z88.0 Allergy status to penicillin; Z88.1 Allergy status to other antibiotic agents; Z88.8 Allergy status to other drugs, medicaments and biological substances

== ENCOUNTER 2023-03-21 11:47 | Emergency (ER) | payer OTHER ==
[~2023-03-21] VITALS: Ht 152.4 cm; Wt 53.7 kg
[~2023-03-21 11:47] MED LIST changes: +DOXY-443 PO; +MUPI30CR TOP
[2023-03-21 16:47] LABS: BASO % 0.5 % (0.0-1.0); EOS % 0.5 % (0.0-3.0); HEMATOCRIT 34.3 % (36.0-47.0); HEMOGLOBIN 10.6 g/dl (12.0-15.5); LYMPH # 0.8 10^3/uL (1.5-5.0); LYMPH % 17.8 % (24.0-44.0); MEAN CORPUSCULAR HEMOGLOBIN 26.1 pg (27.0-33.0); MEAN CORPUSCULAR HGB CONC 30.9 g/dl (32.0-36.5); MEAN CORPUSCULAR VOLUME 84.5 fl (80.0-96.0); MONO # 0.3 10^3/uL (0.0-0.8); MONO % 6.3 % (2.0-8.0); NEUTROPHILS # 3.2 10^3/uL (1.5-8.5); NEUTROPHILS % 74.2 % (36.0-66.0); PLATELET COUNT, AUTOMATED 178 10^3/uL (150-450); RED BLOOD COUNT 4.06 10^6/uL (4.00-5.40); WHITE BLOOD COUNT 4.3 10^3/uL (4.0-10.0)
[2023-03-21 16:57] LABS: ERYTHROCYTE SEDIMENTATION RATE 107 mm/hr (0-20)
[2023-03-21 16:59] LABS: BLOOD UREA NITROGEN 6 MG/DL (9-23); CARBON DIOXIDE LEVEL 28 MMOL/L (20-31); CHLORIDE LEVEL 103 MMOL/L (98-107); CREATININE FOR GFR 1.09 MG/DL (0.55-1.30); GLOMERULAR FILTRATION RATE > 60.0 (>60); GLUCOSE, FASTING 92 MG/DL (60-100); SODIUM LEVEL 140 MMOL/L (136-145)
[2023-03-21] MEDS ORDERED: BACT800T5 PO (17:59)
[2023-03-21 18:16] VITALS: BP 123/81
== END 2023-03-21 18:24 | disposition home or self-care (01) ==
LOC: M ED 11:47
DX: F42.4 Excoriation (skin-picking) disorder (principal); Z86.14 Personal history of Methicillin resistant Staphylococcus aureus infection; F11.10 Opioid abuse, uncomplicated; Z79.899 Other long term (current) drug therapy; Z88.0 Allergy status to penicillin; Z88.1 Allergy status to other antibiotic agents; Z88.8 Allergy status to other drugs, medicaments and biological substances

== ENCOUNTER → 2023-04-25 | Outpatient (REF) | payer OTHER ==
[~2023-04-25] MED LIST changes: +BACT800T5 PO
== END ==
LOC: M SFHCWAGY 10:25
PROVIDERS: ATTEND Nurse Practitioner Family
DX: R10.2 Pelvic and perineal pain (principal); N73.9 Female pelvic inflammatory disease, unspecified

== ENCOUNTER → 2024-03-16 | Outpatient (REF) | payer OTHER ==
[~2024-03-16] MED LIST changes: +DOXY-323 PO; -DOXY-443 PO
== END ==
LOC: M LAB REF 10:37
PROVIDERS: ATTEND Physician Assistant
DX: B88.9 Infestation, unspecified (principal); R89.8 Other abnormal findings in specimens from other organs, systems and tissues

== ENCOUNTER → 2024-05-20 | Outpatient (REF) | payer MEDICAID ==
[~2024-05-20] MED LIST changes: +ONDA-282; -ONDA4TAB6
== END ==
LOC: M SFHCPLAZ 18:15
PROVIDERS: ATTEND Internal Medicine Infectious Disease
DX: L03.116 Cellulitis of left lower limb (principal); Z22.322 Carrier or suspected carrier of Methicillin resistant Staphylococcus aureus

== ENCOUNTER 2024-11-06 17:27 | Emergency (ER) | payer MEDICAID, OTHER ==
[~2024-11-06] VITALS: Ht 152.4 cm; Wt 45.5 kg
[~2024-11-06 17:27] MED LIST changes: -DOXY-323 PO; +DOXY-441 PO
[2024-11-06 17:31] VITALS: BP 145/94; TEMP 98.2; O2SAT 99
== END 2024-11-06 23:23 | disposition home or self-care (01) ==
LOC: M ED 17:27
DX: F43.0 Acute stress reaction (principal); F90.9 Attention-deficit hyperactivity disorder, unspecified type; F32.A Depression, unspecified; F17.290 Nicotine dependence, other tobacco product, uncomplicated; Z79.899 Other long term (current) drug therapy; Z88.0 Allergy status to penicillin; Z88.8 Allergy status to other drugs, medicaments and biological substances; Z88.1 Allergy status to other antibiotic agents

== ENCOUNTER 2024-11-13 14:59 | Inpatient (IN) | payer MEDICAID, OTHER ==
[~2024-11-13] VITALS: Ht 160 cm; Wt 50.0 kg
[2024-11-13 15:54] LABS: HEMATOCRIT 39.8 % (36.0-47.0); HEMOGLOBIN 12.4 g/dl (12.0-15.5); MEAN CORPUSCULAR HEMOGLOBIN 28.6 pg (27.0-33.0); MEAN CORPUSCULAR HGB CONC 31.2 g/dl (32.0-36.5); MEAN CORPUSCULAR VOLUME 91.7 fl (80.0-96.0); RED BLOOD COUNT 4.34 10^6/uL (4.00-5.40); WHITE BLOOD COUNT 4.1 10^3/uL (4.0-10.0)
[2024-11-13 16:30] LABS: ETHYL ALCOHOL (ETHANOL) 0.052 % (0.000-0.010)
[2024-11-13 16:32] LABS: ALBUMIN 3.6 G/DL (3.2-5.2); ALKALINE PHOSPHATASE 73 U/L (35-104); ALT/SGPT 20 U/L (7.0-40); AST/SGOT 23 U/L (<34); BILIRUBIN,DIRECT 0.1 MG/DL (<0.4); BILIRUBIN,TOTAL 0.5 MG/DL (0.3-1.2); BLOOD UREA NITROGEN 13 MG/DL (9-23); CALCIUM LEVEL 8.8 MG/DL (8.5-10.1); CARBON DIOXIDE LEVEL 20 MMOL/L (20-31); CHLORIDE LEVEL 109 MMOL/L (98-107); CREATININE FOR GFR 0.91 MG/DL (0.55-1.30); GLOMERULAR FILTRATION RATE > 60.0 (>60); GLUCOSE, FASTING 69 MG/DL (60-100); POTASSIUM SERUM 4.1 MMOL/L (3.5-5.1); SALICYLATE LEVEL < 3.0 MG/DL (<30); SODIUM LEVEL 143 MMOL/L (136-145); THYROID STIMULATING HORMONE 1.016 uIU/ML (0.55-4.78); TOTAL PROTEIN 7.4 G/DL (5.7-8.2)
[2024-11-13 16:46] LABS: HCG, SERUM QUALITATIVE QNS (NEGATIVE)
[2024-11-13 17:50] LABS: PHENCYCLIDINE URINE NEGATIVE (NEGATIVE)
[2024-11-13 17:51] LABS: BARBITURATES URINE NEGATIVE (NEGATIVE); CANNABINOIDS URINE NEGATIVE (NEGATIVE); COCAINE METABOLITE URINE NEGATIVE (NEGATIVE); METHADONE URINE NEGATIVE (NEGATIVE); OPIATES URINE NEGATIVE (NEGATIVE)
[2024-11-13 17:53] LABS: AMPHETAMINES LEVEL URINE POSITIVE (NEGATIVE); BENZODIAZEPINES URINE POSITIVE (NEGATIVE)
[2024-11-13 18:33] LABS: URINE PREG TEST NEGATIVE (NEGATIVE)
[2024-11-13] MEDS ORDERED: ACETAMINOPHEN 325 MG TAB PO PRN (19:35)
[2024-11-13] MEDS ORDERED: MOM 30ML SUSPENSION UDC PO PRN (19:35)
[2024-11-13] MEDS ORDERED: MAALOX 30 ML SUSP *UDC PO PRN (19:35)
[2024-11-13] MEDS: NICOTINE 14 MG/24 HR TRANSDERMAL TD SCH (19:48)
[2024-11-13] MEDS ORDERED: DEXT10TA2 PO (19:53)
[2024-11-13] MEDS ORDERED: AMPH1TAB2 PO (19:53)
[2024-11-13] MEDS ORDERED: ALPR2TAB3 PO (19:53)
[2024-11-13] MEDS ORDERED: MED REC COMMENT (19:54)
[2024-11-13] MEDS ORDERED: HOME MED LIST COMPLETE! XX SCH (21:20)
[2024-11-14] MEDS: THIAMINE 100 MG TAB PO SCH (09:00)
[2024-11-14] MEDS ORDERED: ADDE20TA PO (10:36)
[2024-11-14] MEDS: ALPRAZolam 0.5 MG TAB PO PRN ×2 (12:15→18:05)
[2024-11-14] MEDS: risperiDONE 0.5 MG TAB PO SCH (13:05)
[2024-11-14] MEDS ORDERED: LORazepam 2 MG TAB PO PRN (13:30)
[2024-11-14 17:06] VITALS: BP 120/69
[2024-11-14] MEDS: FOLIC ACID 1MG TAB PO SCH (17:24)
[2024-11-14] MEDS: MULTIVITAMINS/MINERALS THERAP 1 TAB PO SCH (17:24)
[2024-11-14] MEDS: diphenhydrAMINE 25MG CAP PO PRN (17:24)
[2024-11-14] MEDS: traZODone 50 MG TAB PO PRN (21:12)
[2024-11-14] MEDS: PRAZOSIN 1 MG CAP PO SCH (21:13)
[2024-11-15] VITALS: BP 120/56
[2024-11-15 06:32] VITALS: BP 118/60; TEMP 98.1; O2SAT 99
[2024-11-15] MEDS: risperiDONE 0.5 MG TAB PO SCH (09:00)
[2024-11-15] MEDS: NICOTINE POLACRILEX 2 MG GUM PO PRN (09:40)
[2024-11-15 09:42] VITALS: BP 118/73; TEMP 97.7; O2SAT 100
[2024-11-15] MEDS: IBUPROFEN 400MG TAB PO PRN (11:21)
[2024-11-15] MEDS: OLANZapine 5 MG TAB PO PRN (14:38)
[2024-11-15] MEDS: NICOTINE 14 MG/24 HR TRANSDERMAL TD SCH (15:31)
[2024-11-15 16:00] VITALS: BP 106/61; TEMP 97.8; O2SAT 99
[2024-11-15 17:09] VITALS: BP 108/58; TEMP 97.5; O2SAT 100
[2024-11-16] VITALS: BP 100/62
[2024-11-16 06:30] VITALS: BP 99/62; TEMP 98; O2SAT 98
[2024-11-16 14:15] VITALS: BP 105/57
[2024-11-16 15:14] VITALS: BP 105/57; TEMP 97.4; O2SAT 100
[2024-11-16] MEDS: OLANZapine 5 MG TAB PO SCH (20:17)
[2024-11-16 21:01] VITALS: BP 111/60; TEMP 97.7; O2SAT 99
[2024-11-16 22:00] VITALS: BP 111/60
[2024-11-17] VITALS (8 sets, daily range): BP systolic 80–115; BP diastolic 44–82; TEMP 97.4–99.1; O2SAT 16–100
[2024-11-17 06:26] LABS: BASO % 0.4 % (0.0-1.0); EOS # 0.1 10^3/uL (0.0-0.5); EOS % 1.8 % (0.0-3.0); HEMATOCRIT 34.6 % (36.0-47.0); HEMOGLOBIN 10.9 g/dl (12.0-15.5); LYMPH # 0.7 10^3/uL (1.5-5.0); LYMPH % 25.8 % (24.0-44.0); MEAN CORPUSCULAR HEMOGLOBIN 28.2 pg (27.0-33.0); MEAN CORPUSCULAR HGB CONC 31.5 g/dl (32.0-36.5); MEAN CORPUSCULAR VOLUME 89.6 fl (80.0-96.0); MONO # 0.4 10^3/uL (0.0-0.8); MONO % 14.4 % (2.0-8.0); NEUTROPHILS # 1.6 10^3/uL (1.5-8.5); NEUTROPHILS % 57.6 % (36.0-66.0); PLATELET COUNT, AUTOMATED 112 10^3/uL (150-450); RED BLOOD COUNT 3.86 10^6/uL (4.00-5.40); WHITE BLOOD COUNT 2.7 10^3/uL (4.0-10.0)
[2024-11-17 06:33] LABS: ERYTHROCYTE SEDIMENTATION RATE 11 mm/hr (0-20)
[2024-11-17 06:54] LABS: C REACTIVE PROTEIN QUANTITATIV < 0.50 MG/DL (<1.0)
[2024-11-17 06:55] LABS: ALKALINE PHOSPHATASE 64 U/L (35-104); ALT/SGPT 13 U/L (7.0-40); AST/SGOT 12 U/L (<34); BILIRUBIN,TOTAL 0.3 MG/DL (0.3-1.2); BLOOD UREA NITROGEN 18 MG/DL (9-23); CALCIUM LEVEL 8.3 MG/DL (8.5-10.1); CARBON DIOXIDE LEVEL 29 MMOL/L (20-31); CHLORIDE LEVEL 109 MMOL/L (98-107); CREATININE FOR GFR 0.93 MG/DL (0.55-1.30); GLOMERULAR FILTRATION RATE > 60.0 (>60); GLUCOSE, FASTING 98 MG/DL (60-100); MAGNESIUM LEVEL 1.8 MG/DL (1.8-2.4); POTASSIUM SERUM 3.9 MMOL/L (3.5-5.1); SODIUM LEVEL 146 MMOL/L (136-145); TOTAL PROTEIN 6.1 G/DL (5.7-8.2)
[2024-11-17] MEDS ORDERED: MIDODRINE 5 MG TAB PO PRN (08:10)
[2024-11-17] MEDS ORDERED: ALPRAZolam 0.5 MG TAB PO PRN (09:25)
[2024-11-17] MEDS: ALPRAZolam 0.5 MG TAB PO SCH (09:53)
[2024-11-18 15:18] VITALS: BP 96/74; TEMP 98.7; O2SAT 99
[2024-11-18 22:00] VITALS: BP 97/78; TEMP 98.1; O2SAT 98
[2024-11-19 15:50] VITALS: BP 126/69; TEMP 98.7; O2SAT 99
[2024-11-19 20:16] VITALS: BP 158/92
[2024-11-20] MEDS ORDERED: OLAN1TAB16 PO (08:15)
[2024-11-20] MEDS ORDERED: TRAZ-252 PO (08:15)
== END 2024-11-20 11:46 | disposition home or self-care (01) | DRG 753 ==
LOC: M ED 14:59 → EEVIPCON 19:33 → M ED INP 19:33 → M PSY 23:39
PROVIDERS: ADMIT Psychiatry & Neurology Neurology; ATTEND Psychiatry & Neurology Psychiatry
DX: F39 Unspecified mood [affective] disorder (principal); Z79.899 Other long term (current) drug therapy; Z88.0 Allergy status to penicillin; Z88.1 Allergy status to other antibiotic agents; Z88.8 Allergy status to other drugs, medicaments and biological substances; Z56.0 Unemployment, unspecified; F17.200 Nicotine dependence, unspecified, uncomplicated; S81.802A Unspecified open wound, left lower leg, initial encounter; X58.XXXA Exposure to other specified factors, initial encounter; Y92.9 Unspecified place or not applicable

== ENCOUNTER 2024-11-30 11:15 | Emergency (ER) | payer MEDICAID, OTHER ==
[~2024-11-30] VITALS: Ht 152.4 cm; Wt 44.2 kg
[~2024-11-30 11:15] MED LIST changes: +ADDE20TA PO; +ALPR2TAB3 PO; +AMPH1TAB2 PO; +DEXT10TA2 PO; +MED REC COMMENT; +OLAN1TAB16 PO
[2024-11-30 11:17] VITALS: BP 141/94; TEMP 97.6; O2SAT 100
[2024-11-30] MEDS ORDERED: ALPR2TAB3 (11:24)
[2024-11-30] MEDS ORDERED: XANA1TAB2 PO (11:39)
== END 2024-11-30 12:04 | disposition home or self-care (01) ==
LOC: M ED 11:15
DX: F13.239 Sedative, hypnotic or anxiolytic dependence with withdrawal, unspecified (principal); Z79.899 Other long term (current) drug therapy; Z88.0 Allergy status to penicillin; Z88.1 Allergy status to other antibiotic agents; Z88.8 Allergy status to other drugs, medicaments and biological substances

== ENCOUNTER 2025-01-23 18:56 | Emergency (ER) | payer OTHER ==
[~2025-01-23] VITALS: Ht 157.5 cm; Wt 48.9 kg
[~2025-01-23 18:56] MED LIST changes: +ALPR2TAB3
[2025-01-23 19:03] VITALS: BP 129/76; TEMP 98.6; O2SAT 100
[2025-01-23] MEDS: ALPRAZolam 0.5 MG TAB PO ONE (20:20)
== END 2025-01-23 20:28 | disposition home or self-care (01) ==
LOC: M ED 18:56
DX: Z76.0 Encounter for issue of repeat prescription (principal); Z86.73 Personal history of transient ischemic attack (TIA), and cerebral infarction without residual deficits; F17.200 Nicotine dependence, unspecified, uncomplicated; Z79.899 Other long term (current) drug therapy; Z88.0 Allergy status to penicillin; Z88.1 Allergy status to other antibiotic agents; Z88.8 Allergy status to other drugs, medicaments and biological substances

== ENCOUNTER 2025-02-25 13:56 | Emergency (ER) | payer OTHER ==
[~2025-02-25] VITALS: Ht 152.4 cm; Wt 44.3 kg
[2025-02-25] MEDS: NS (Normal Saline) 0.9% 1,000 ML IV ONE (16:25)
[2025-02-25 17:58] LABS: BASO % 0.1 % (0.0-1.0); HEMATOCRIT 35.4 % (36.0-47.0); HEMOGLOBIN 11.4 g/dl (12.0-15.5); LYMPH # 0.4 10^3/uL (1.5-5.0); LYMPH % 5.8 % (24.0-44.0); MEAN CORPUSCULAR HEMOGLOBIN 28.5 pg (27.0-33.0); MEAN CORPUSCULAR HGB CONC 32.2 g/dl (32.0-36.5); MEAN CORPUSCULAR VOLUME 88.5 fl (80.0-96.0); MONO # 0.8 10^3/uL (0.0-0.8); MONO % 10.9 % (2.0-8.0); NEUTROPHILS # 5.7 10^3/uL (1.5-8.5); NEUTROPHILS % 82.6 % (36.0-66.0); WHITE BLOOD COUNT 6.9 10^3/uL (4.0-10.0)
[2025-02-25] MEDS: ACETAMINOPHEN 325 MG TAB PO ONE (18:09)
[2025-02-25 18:12] LABS: CALCIUM LEVEL 8.7 MG/DL (8.5-10.1); CREATININE FOR GFR 0.97 MG/DL (0.55-1.30); GLOMERULAR FILTRATION RATE 77.2 (>60); POTASSIUM SERUM 3.8 MMOL/L (3.5-5.1)
[2025-02-25 18:23] LABS: PLATELET COUNT, AUTOMATED 94 10^3/uL (150-450)
[2025-02-25] MEDS: DOXYCYCLINE HYCLATE 100MG TABLET PO ONE (18:36)
[2025-02-25] MEDS: cefTRIAXone SOD 1 GM in DEXTROSE 5% (D5W) ADV/MINI-BAG 50 ML IV ONE (18:50)
[2025-02-25] MEDS: ALPRAZolam 0.5 MG TAB PO ONE (19:25)
[2025-02-25] MEDS ORDERED: OSEL75CA PO (19:52)
[2025-02-25] MEDS ORDERED: CEFD1CAP9 PO (19:52)
[2025-02-25] MEDS ORDERED: LEVO1TAB40 PO (19:58)
[2025-02-25] MEDS ORDERED: XANA0.5T PO (20:03)
[2025-02-25 20:10] VITALS: TEMP 98.6
[2025-02-25] MEDS: OSELTAMIVIR PHOSPHATE 75 MG CAP PO ONE (20:26)
[2025-02-25 20:30] VITALS: BP 96/58
[2025-02-25 20:36] VITALS: O2SAT 97
== END 2025-02-25 21:03 | disposition home or self-care (01) ==
LOC: M ED 13:56 → EDBD 13:56 → M ED 21:03
DX: J09.X1 Influenza due to identified novel influenza A virus with pneumonia (principal); Z76.0 Encounter for issue of repeat prescription; Z86.73 Personal history of transient ischemic attack (TIA), and cerebral infarction without residual deficits; F11.10 Opioid abuse, uncomplicated; F17.200 Nicotine dependence, unspecified, uncomplicated; Z79.899 Other long term (current) drug therapy; Z88.0 Allergy status to penicillin; Z88.1 Allergy status to other antibiotic agents; Z88.8 Allergy status to other drugs, medicaments and biological substances
CPT/HCPCS: 71046; 80048; 85025; 85049; 85055; 86140; 87040; 87070; 87077; 87186; 87205; 87486; 87581; 87633; 87798; 93005; 96361; 96365; 99285; J0696

== ENCOUNTER 2025-05-09 17:17 | Emergency (ER) | payer OTHER ==
[~2025-05-09] VITALS: Ht 152.4 cm; Wt 46.3 kg
[~2025-05-09 17:17] MED LIST changes: +CEFD1CAP9 PO; +DEBR6.5S4 OTIC; +FLUTISP; +LEVO1TAB40 PO; +OSEL75CA PO; +XANA0.5T PO
[2025-05-09 19:33] VITALS: BP 117/79; TEMP 98.3; O2SAT 100
[2025-05-09] MEDS ORDERED: XANA1TAB2 PO (19:38)
[2025-05-09] MEDS ORDERED: DEBR6.5S4 OTIC (19:42)
[2025-05-09] MEDS: ALPRAZolam 0.5 MG TAB PO ONE (20:08)
[2025-05-09] MEDS: CARBAMIDE PEROXIDE 6.5% OTIC SOLN 15 ML AU SCH (20:09)
== END 2025-05-09 20:18 | disposition home or self-care (01) ==
LOC: M ED 17:17
DX: F41.9 Anxiety disorder, unspecified (principal); Z88.0 Allergy status to penicillin; Z88.1 Allergy status to other antibiotic agents; Z86.73 Personal history of transient ischemic attack (TIA), and cerebral infarction without residual deficits; F40.00 Agoraphobia, unspecified; F17.200 Nicotine dependence, unspecified, uncomplicated; Z79.899 Other long term (current) drug therapy

== ENCOUNTER 2025-06-08 16:05 | Emergency (ER) | payer OTHER ==
[~2025-06-08] VITALS: Ht 152.4 cm; Wt 43.4 kg
[2025-06-08 16:11] VITALS: BP 132/97; TEMP 98.1; O2SAT 97
== END 2025-06-08 19:08 | disposition left against medical advice (07) ==
LOC: M ED 16:05
DX: Z53.21 Procedure and treatment not carried out due to patient leaving prior to being seen by health care provider (principal)

== ENCOUNTER 2025-06-10 20:28 | Emergency (ER) | payer OTHER ==
[~2025-06-10] VITALS: Ht 152.4 cm; Wt 44.2 kg
[2025-06-11 08:57] LABS: Trichomonas vaginalis (AMP) POSITIVE (NEGATIVE)
[2025-06-11 09:28] LABS: GC DNA AMPLIFICATION NEGATIVE (NEGATIVE)
[2025-06-11] MEDS: ALPRAZolam 0.25 MG TAB PO ONE (10:01)
[2025-06-11 10:16] LABS: BENZODIAZEPINES URINE NEGATIVE (NEGATIVE); COCAINE METABOLITE URINE NEGATIVE (NEGATIVE); METHADONE URINE NEGATIVE (NEGATIVE)
[2025-06-11 10:17] LABS: BARBITURATES URINE NEGATIVE (NEGATIVE); OPIATES URINE NEGATIVE (NEGATIVE)
[2025-06-11 10:23] LABS: CANNABINOIDS URINE NEGATIVE (NEGATIVE); PHENCYCLIDINE URINE NEGATIVE (NEGATIVE)
[2025-06-11 10:24] LABS: AMPHETAMINES LEVEL URINE POSITIVE (NEGATIVE)
[2025-06-11] MEDS ORDERED: CLIN2CRE PV (12:40)
[2025-06-11 12:55] VITALS: BP 110/68; TEMP 97; O2SAT 98
== END 2025-06-11 13:07 | disposition home or self-care (01) ==
LOC: M ED 20:28
DX: N76.0 Acute vaginitis (principal); F19.10 Other psychoactive substance abuse, uncomplicated; Z86.73 Personal history of transient ischemic attack (TIA), and cerebral infarction without residual deficits; R51.9 Headache, unspecified; F41.9 Anxiety disorder, unspecified; F32.A Depression, unspecified; F11.10 Opioid abuse, uncomplicated; F17.200 Nicotine dependence, unspecified, uncomplicated; Z88.0 Allergy status to penicillin; Z88.1 Allergy status to other antibiotic agents; Z88.8 Allergy status to other drugs, medicaments and biological substances